=== PATIENT | female | born 1975 | race Caucasian/White ===

== ENCOUNTER 2017-11-02 10:43 | Emergency (ER) | payer OTHER ==
[~2017-11-02] VITALS: Ht 147.3 cm; Wt 48.1 kg
[~2017-11-02 10:43] MED LIST: CYMBALTA30 MG PO; DARVOCET-N 1001 EACH PO; FLEXERIL PO; HYDROCODONE-AP1 EAC6 PO; HYDROXYZINE HCL25 M1 PO; IBUPROFEN 200200 M1 PO; IBUPROFEN 800800 M1 PO; LYRICA 75 MG CA75 MG PO; MOBIC15 MG PO; NAPROSYN375 MG PO; NEURONTIN 300300 M1 PO; NORCO 5-325 TA1 EAC1 PO; NORCO 5-325 TA1 EACH PO; PENICILLIN V P500 MG PO; PERCOCET 5-3251 EACH PO; PRED FORTE 1% EY5 M1 OP; PREDNISONE 10 M10 M1 PO; RISPERDAL0.25 MG PO; TRAMADOL 50 MG50 MG PO; ULTRAM 50MG TAB50 MG PO; VICODIN 5-5001 EACH PO; WAL-PROFEN200 M1 PO; WELLBUTRIN 100100 MG PO; [UNRECOGNIZED DRUG - REMARK]
[2017-11-02] MEDS ORDERED: WELLBUTRIN 100100 MG PO (10:55)
[2017-11-02] MEDS ORDERED: AMOXICILLIN 50500 MG PO (10:59)
[2017-11-02 11:21] VITALS: BP 130/61
== END 2017-11-02 11:22 | disposition home or self-care (01) ==
LOC: M.ERS 10:43
DX: J06.9 Acute upper respiratory infection, unspecified (principal); M79.7 Fibromyalgia; F17.210 Nicotine dependence, cigarettes, uncomplicated; Z88.5 Allergy status to narcotic agent

== ENCOUNTER 2018-05-05 13:56 | Emergency (ER) | payer OTHER ==
[~2018-05-05] VITALS: Ht 147.3 cm; Wt 52.2 kg
[~2018-05-05 13:56] MED LIST changes: +AMOXICILLIN 50500 MG PO
[2018-05-05] MEDS ORDERED: NOHOMEMEDICATIONS (14:27)
[2018-05-05] MEDS ORDERED: GABAPENTIN 100100 MG PO (15:30)
[2018-05-05] MEDS ORDERED: METHOCARBAMOL500 M2 PO (15:30)
[2018-05-05 16:00] VITALS: BP 114/74
== END 2018-05-05 16:02 | disposition home or self-care (01) ==
LOC: M.ERS 13:56
DX: M54.5 Low back pain (principal); M79.7 Fibromyalgia; F17.210 Nicotine dependence, cigarettes, uncomplicated; Z98.890 Other specified postprocedural states

== ENCOUNTER 2018-08-05 15:40 | Emergency (ER) | payer OTHER ==
[~2018-08-05] VITALS: Ht 147.3 cm; Wt 52.6 kg
[~2018-08-05 15:40] MED LIST changes: +GABAPENTIN 100100 MG PO; +METHOCARBAMOL500 M2 PO; +NOHOMEMEDICATIONS
[2018-08-05 15:51] LABS: URINE BILIRUBIN NEGATIVE (Negative); URINE BLOOD NEGATIVE (Negative); URINE CLARITY CLEAR; URINE COLOR YELLOW; URINE GLUCOSE-RANDOM NEGATIVE (Negative); URINE KETONES NEGATIVE (Negative); URINE LEUKOCYTES-REFLEX NEGATIVE (Negative); URINE NITRITE-REFLEX NEGATIVE (Negative); URINE PROTEIN NEGATIVE (Negative); URINE SPECIFIC GRAVITY >= 1.030 (1.005-1.030); URINE UROBILINOGEN 0.2 E.U./dl (0.2-1.0)
[2018-08-05 16:28] LABS: ABSOLUTE EOSINOPHILS 0.3 thou/uL (0.0-0.7); ABSOLUTE LYMPHOCYTES 2.5 thou/uL (0.8-5.3); ABSOLUTE MONOCYTES 0.6 thou/uL (0.0-1.2); ABSOLUTE NEUTROPHILS 3.5 thou/uL (1.6-8.1); BASOPHILS 0.5 %; EOSINOPHILS 3.7 %; HEMATOCRIT 45.2 % (37.0-47.0); HEMOGLOBIN 15.5 gm/dL (12.0-15.0); LYMPHOCYTES 36.1 %; MCH 32.8 pg (26.0-34.0); MCHC 34.3 g/dL (28.0-37.0); MCV 95.7 fL (80.0-100.0); MONOCYTES 8.7 %; MPV 8.4 fl. (7.2-11.1); NUCLEATED RBCS 0 /100WBC; PLATELET COUNT* 188 thou/uL (150-400); RBC 4.73 mil/uL (4.20-5.00); RDW-CV 13.2 % (10.5-14.5); WBC 6.9 thou/uL (4.0-11.0)
[2018-08-05 16:35] LABS: CALCIUM 8.9 mg/dL (8.5-10.1); CREATININE 0.8 mg/dL (0.6-1.3); POTASSIUM 3.4 mmol/L (3.5-5.1)
[2018-08-05 16:39] LABS: ALBUMIN 3.7 g/dL (3.4-5.0); TOTAL BILIRUBIN 0.3 mg/dL (<0.1-1.0); TOTAL PROTEIN 7.4 g/dL (6.4-8.2)
[2018-08-05 17:09] LABS: INFLUENZA A ANTIGEN None Detected (None Detect); INFLUENZA B ANTIGEN None Detected (None Detect)
[2018-08-05] MEDS ORDERED: ZOFRAN4 MG PO (17:18)
[2018-08-05] MEDS ORDERED: BENTYL 20 MG TA20 M1 PO (17:18)
[2018-08-05 17:27] VITALS: BP 122/71
== END 2018-08-05 17:28 | disposition home or self-care (01) ==
LOC: M.ERS 15:40
PROVIDERS: Nurse Practitioner Family
DX: K52.9 Noninfective gastroenteritis and colitis, unspecified (principal); M79.7 Fibromyalgia; F17.210 Nicotine dependence, cigarettes, uncomplicated; Z88.5 Allergy status to narcotic agent; Z88.6 Allergy status to analgesic agent; Z98.890 Other specified postprocedural states

== ENCOUNTER 2019-06-19 07:33 | Inpatient (IN) | payer OTHER ==
[~2019-06-19] VITALS: Ht 149.9 cm; Wt 57.0 kg
[~2019-06-19 07:33] MED LIST changes: +BENTYL 20 MG TA20 M1 PO; +ZOFRAN4 MG PO
[2019-06-19 07:43] VITALS: BP 129/87
[2019-06-19] MEDS ORDERED: CYMBALTA60 MG PO (07:49)
[2019-06-19 08:04] LABS: URINE BLOOD NEGATIVE (Negative); URINE CLARITY CLEAR; URINE COLOR YELLOW; URINE GLUCOSE-RANDOM TRACE (Negative); URINE KETONES TRACE (Negative); URINE LEUKOCYTES-REFLEX NEGATIVE (Negative); URINE NITRITE-REFLEX NEGATIVE (Negative); URINE PROTEIN 1+ (Negative); URINE SPECIFIC GRAVITY >= 1.030 (1.005-1.030)
[2019-06-19 08:06] LABS: ABSOLUTE BASOPHILS 0.1 thou/uL (0.0-0.2); ABSOLUTE EOSINOPHILS 0.1 thou/uL (0.0-0.7); ABSOLUTE LYMPHOCYTES 1.9 thou/uL (0.8-5.3); ABSOLUTE MONOCYTES 0.6 thou/uL (0.0-1.2); ABSOLUTE NEUTROPHILS 8.8 thou/uL (1.6-8.1); EOSINOPHILS 0.6 %; HEMATOCRIT 47.2 % (37.0-47.0); HEMOGLOBIN 16.5 gm/dL (12.0-15.0); LYMPHOCYTES 16.7 %; MCH 32.4 pg (26.0-34.0); MCHC 34.9 g/dL (28.0-37.0); MCV 92.8 fL (80.0-100.0); MONOCYTES 5.5 %; MPV 7.9 fl. (7.2-11.1); NUCLEATED RBCS 0 /100WBC; PLATELET COUNT* 257 thou/uL (150-400); POLYS 76.2 %; RBC 5.08 mil/uL (4.20-5.00); RDW-CV 12.8 % (10.5-14.5); WBC 11.6 thou/uL (4.0-11.0)
[2019-06-19 08:10] LABS: ICTOTEST (BILI CONFIRMATORY) Negative (Negative); URINE BILIRUBIN 1+ (Negative)
[2019-06-19 08:11] LABS: CALCIUM 8.9 mg/dL (8.5-10.1); CREATININE 0.8 mg/dL (0.6-1.3); POTASSIUM 3.8 mmol/L (3.5-5.1)
[2019-06-19 08:21] LABS: ALBUMIN 3.5 g/dL (3.4-5.0); TOTAL BILIRUBIN 0.7 mg/dL (<0.1-1.0); TOTAL PROTEIN 7.8 g/dL (6.4-8.2); TROPONIN-I LEVEL 0.14 ng/mL (<0.06)
--- NOTE | 2019-06-19 09:57 | EKG ---
[place] [address] ELECTROCARDIOGRAM REPORT Name: ANISHJANEL Angelita Room: [place] [address] ADM IN 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1975 Requested By: Tamir Melendez Order Number: [id number] MD: Johnie Hernandez Measurements Intervals [place] Rate: 101 P: 68 NC: 128 QRS: 47 QRSD: 66 T: 71 QT: 350 QTc: 454 Interpretive Statements Sinus tachycardia Probable left atrial enlargement Anteroseptal infarct, age indeterminate Compared to ECG 03/11/2013 07:05:37 Myocardial infarct finding now present Electronically Signed On 06-19-2019 9:57:36 CDT by Johnie Hernandez [email or web address] <ELECTRONICALLY SIGNED> By: Johnie Hernandez MD, [facility] 06/19/19 [id number] Johnie Hernandez MD, [facility] /EPI
[2019-06-19 10:26] VITALS: BP 125/79
[2019-06-19 10:40] VITALS: BP 116/56
[2019-06-19 11:50] LABS: CHOLESTEROL 211 mg/dL (<200); HDL CHOLESTEROL 46 mg/dL (>40); LDL CHOLESTEROL 152 mg/dL (<100); TC:HDL 4.6 Ratio (Not establshd); TRIGLYCERIDE 69 mg/dL (<150); VLDL 14 mg/dL (<40)
[2019-06-19 11:56] LABS: SERUM ASSESSMENT Clear
[2019-06-19 16:12] VITALS: BP 112/61
--- NOTE | 2019-06-19 16:43 | 2DMMODE ---
[place] [address] 2 D/M-MODE ECHOCARDIOGRAM Name: JANEL OCONNELL Room: [address] Marta#: [id number] Admission: 06/19/19 Attend Phys: Chris Salinas, Discharge: Date of : 75 Date of Service: 06/19/19 1643 Report #: [id number] THIS REPORT FOR: //name// APPROVED REPORT Study performed: 06/19/2019 15:34:55 EXAM: Comprehensive 2D, Doppler, and color-flow Echocardiogram Patient Location: In-Patient Room #: [facility] Status: routine BSA: 1.51 HR: 76 bpm BP: 116/56 mmHg Rhythm: NSR Other Information Study Quality: Good Indications Elevated Troponin Chest Pain 2D Dimensions IVSd: 6.46 (7-11mm) LVOT Diam: 17.45 (18-24mm) LVDd: 37.86 mm PWd: 7.58 (7-11mm) Ascending Ao: 26.09 (22-36mm) LVDs: 26.76 (25-40mm) Aortic Root: 25.22 mm Volumes Left Atrial Volume (Systole) LA ESV Index: 11.60 mL/m2 Aortic Valve AoV Peak Enrico.: 1.17 m/s AO Peak Gr.: 5.48 mmHg LVOT Max P.51 mmHg AO Mean Gr.: 3.14 mmHg LVOT Mean P.64 mmHg LVOT Max V: 0.94 m/s AO V2 VTI: 22.78 cm LVOT Mean V: 0.58 m/s TONY (VTI): 2.10 cm2 LVOT V1 VTI: 19.98 cm Mitral Valve E/A Ratio: 1.07 MV Decel. Time: 198.91 [place] [address] 2 D/M-MODE ECHOCARDIOGRAM Name: JANEL OCONNELL Room: [address]#: [id number] Admission: 06/19/19 Attend Phys: Chris Salinas, Discharge: Date of : 75 Date of Service: 06/19/19 1643 Report #: [id number] MV E Max Enrico.: 0.99 m/s MV PHT: 57.68 ms MVA (PHT): 3.81 cm2 TDI E/Lateral E': 9.00 E/Medial E': 11.00 Medial E' Enrico.: 0.09 m/s Lateral E' Enrico.: 0.11 m/s Pulmonary Valve PV Peak Enrico.: 0.81 m/s PV Peak Gr.: 2.62 mmHg Tricuspid Valve RAP Estimate: 5.00 mmHg TR Peak Gr.: 20.08 mmHg RVSP: 25.00 mmHg PA Pressure: 25.00 mmHg Left Ventricle The left ventricle is normal size. distal septal hypokinesis noted There is normal left ventricular wall thickness. Left ventricular systolic function is mildly decreased. LVEF is 45-50%. The left ventricular diastolic function is normal. Right Ventricle The right ventricle is normal size. The right ventricular systolic function is normal. Atria The left atrium size is normal. The right atrium size is normal. Aortic Valve The aortic valve is normal in structure. No aortic regurgitation is present. There is no aortic valvular stenosis. Mitral Valve The mitral valve is normal in structure. Trace mitral regurgitation. No evidence of mitral valve stenosis. Tricuspid Valve The tricuspid valve is normal in structure. Mild tricuspid regurgitation. No pulmonary hypertension. Pulmonic Valve Pulmonic valve is not well visualized. There is no pulmonic [place] [address] 2 D/M-MODE ECHOCARDIOGRAM Name: JANEL OCONNELL Room: [address]#: [id number] Admission: 06/19/19 Attend Phys: Chris Salinas, Discharge: Date of : 75 Date of Service: 06/19/19 1643 Report #: [id number] Great Vessels The aortic root is normal in size. IVC is normal in size and collapses >50% with inspiration. Pericardium There is no pericardial effusion. <Conclusion> distal septal hypokinesis noted LVEF is 45-50%. <ELECTRONICALLY SIGNED> By: Johnie Hernandez MD, [facility] 06/19/191642 42 42 Johnie Hernandez MD, FAC /INF
--- NOTE | 2019-06-19 18:24 | NUR ---
PT ARRIVED ON THE UNIT AROUND 1040 FROM EMERGENCY. PT VSS, NSR ON TELE., PT WAS HOSPITALIZED FOR OBSERVATION DUE TO ELEVATED TROPONIN LEVEL AND REPORTED CHEST PAIN. PT WAS NAUSEATED AND VOMITING PRIOR TO ER VISIT. ZOFRAN ADMINISTERED TWICE. CARDIAC DIET. PT UP AD BETTE, HOURLY ROUNDING PERFORMED, PT ORIENTED TO ROOM, CALL LIGHT AND BED CONTROLS. PT POSSESSIONS WITHIN REACH. PT SPENT MOST OF THE DAY RESTING IN ROOM. NS RUNNING AT 150ML/HR.
--- NOTE | 2019-06-19 19:04 | NUR ---
THIS RN AGREES WITH THE ASSESSMENT AND CHARTING OF FLACO PERALTA.
[2019-06-19 20:00] VITALS: BP 120/72
[2019-06-20 00:38] VITALS: BP 115/74
--- NOTE | 2019-06-20 04:56 | NUR ---
ASSUMED CARE OF PT AFTER REPORT AT 1930. PT A&OX4. VSS. PHYSICAL ASSESSMENT COMPLETED AND CHARTED. PT ON RA. PT TRACING SR ON TELE. PT UP ADLIB TO RESTROOM. PT DENIES ANY PAIN OR DISCOMFORT. INSTRUCTED PT NPO POST MIDNIGHT FOR STRESS TEST TODAY. COMMUNICATES UNDERSTANDING. PT ABLE TO SLEEP WELL ON BED. CALL LIGHT WITHIN REACH.
[2019-06-20 05:20] LABS: HEMATOCRIT 42.3 % (37.0-47.0); MCHC 33.7 g/dL (28.0-37.0); MCV 95.1 fL (80.0-100.0); MPV 8.6 fl. (7.2-11.1); RBC 4.45 mil/uL (4.20-5.00); RDW-CV 13.3 % (10.5-14.5); WBC 7.6 thou/uL (4.0-11.0)
[2019-06-20 05:22] LABS: HEMOGLOBIN 14.2 gm/dL (12.0-15.0)
[2019-06-20 08:00] VITALS: BP 113/55
--- NOTE | 2019-06-20 11:25 | NUR ---
ASSUMED CARE OF PATIENT THIS AM AT 0730. PATIENT IS ALERT AND ORIENTED X 4. SHE DENIES CHEST PAIN AND SOA. TELE SHOWS NSR. DR XAVIER IN TO ROUND AND STRESS TEST CANCELLED AND ORDERS FOR A CARDIAC CATH PLACED. IV FLUIDS STARTED AT 100 ML/HR. PO MEDICATIONS GIVEN ORDERED WITH SIP OF H2O. CONSENT SIGNED. PATIENT TAKEN TO [facility] PER BED. NOTIFIED THAT PATIENT WOULD BE GOING TO ICU POST CATH.
[2019-06-20 11:30] LABS: BE -16.6 mmol/L (-2 to +3); PCO2 46.7 mmHg (35.0-45.0); PO2 71.7 mmHg (75.0-100.0)
[2019-06-20 11:31] LABS: pH 7.061 (7.340-7.450)
[2019-06-20 11:52] LABS: pH 7.448 (7.340-7.450)
[2019-06-20 11:53] LABS: BE 10.9 mmol/L (-2 to +3); PCO2 54.2 mmHg (35.0-45.0); PO2 233.1 mmHg (75.0-100.0)
--- NOTE | 2019-06-20 13:30 | NUR ---
1300 Assume care of pt. Pt . Family at BS. Spoke to Dr Salinas and notified him of . 1330 Dr Salinas to BS. Dr Hernandez to come see pt when he is finished in can labeler
--- NOTE | 2019-06-20 15:53 | EKG ---
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: : 1975 Requested By: Johnie Hernandez Order Number: [id number] Kirstin MD: Johnie Hernandez Measurements Intervals [place] Rate: 74 P: 76 HI: 120 QRS: 40 QRSD: 87 T: 49 QT: 376 QTc: 418 Interpretive Statements Sinus rhythm Anterolateral infarct, acute (LAD) Baseline wander in lead(s) V1 Compared to ECG 06/19/2019 07:57:51 ST (T wave) deviation now present Sinus tachycardia no longer present Myocardial infarct finding still present Electronically Signed On 06-20-2019 15:53:20 CDT by Johnie Hernandez [email or web address] <ELECTRONICALLY SIGNED> By: Johnie Hernandez MD, [facility] 06/20/19 1553 1025 1025 Johnie Hernandez MD, [facility] /EPI
== END 2019-06-20 13:01 ==
LOC: M.ERS 07:33 → M.TBA-ER 08:36 → M.2W 08:36 → M.ICU 06-20 09:02 → M.2W 06-20 12:06
PROVIDERS: Emergency Medicine Emergency Medical Services; ADMIT Internal Medicine
DX: I21.9 Acute myocardial infarction, unspecified (principal); I50.21 Acute systolic (congestive) heart failure; R65.10 Systemic inflammatory response syndrome (SIRS) of non-infectious origin without acute organ dysfunction; I24.9 Acute ischemic heart disease, unspecified; I24.0 Acute coronary thrombosis not resulting in myocardial infarction; F17.210 Nicotine dependence, cigarettes, uncomplicated; F32.9 Major depressive disorder, single episode, unspecified; A08.4 Viral intestinal infection, unspecified; M79.7 Fibromyalgia; E86.9 Volume depletion, unspecified; D25.9 Leiomyoma of uterus, unspecified; F41.9 Anxiety disorder, unspecified; E78.5 Hyperlipidemia, unspecified; I46.9 Cardiac arrest, cause unspecified; I49.01 Ventricular fibrillation; Z71.6 Tobacco abuse counseling; Z88.6 Allergy status to analgesic agent; Z79.899 Other long term (current) drug therapy